=== PATIENT | female | born 1990 | race Caucasian/White ===

== ENCOUNTER 2018-08-10 08:44 | Emergency (ER) | payer SELFPAY ==
[2018-08-10 09:01] VITALS: BP 115/71
--- NOTE | 2018-08-10 09:17 | UC ---
Shoulder Pain HPI - HPI Summary HPI Summary: 27-year-old otherwise healthy female presents with 2 days of right sided scapula /chest pain. She reports mild shortness of breath and states that it gets worse with deep breath or cough. She has not been ill and states that this happened rather abruptly. She denies any recent travel or leg pain/swelling. She does have a sister that has history of pulmonary emboli. She is on her menses now and is not taking any oral contraceptives. She is a nonsmoker. - History of Current Complaint Chief Complaint: UCGeneralIllness Stated Complaint: R SIDE PAIN, SOB Time Seen by Provider: 08/10/18 09:07 Hx Obtained From: Patient Hx Last Menstrual Period: current Pain Intensity: 3 - Allergies/Home Medications Allergies/Adverse Reactions: Allergies Allergy/AdvReac Type Severity Reaction Status Date / Time Penicillins Allergy Hives Verified 08/10/18 09:02 Home Medications: Home Medications Ibuprofen 2 tab PO BID 08/10/18 [History Confirmed 08/10/18] PMH/Surg Hx/FS Hx/Imm Hx Previously Healthy: Yes - Surgical History Surgical History: None - Family History Known Family History: Positive: Other - Pulmonary emboli in sister - Social History Alcohol Use: Occasionally Substance Use Type: Marijuana Substance Use Comment - Amount & Last Used: daily Smoking Status (MU): Never Smoked Tobacco - Immunization History Most Recent Tetanus Shot: UTD Review of Systems All Other Systems Reviewed And Are Negative: Yes Constitutional: Positive: Negative ENT: Positive: Negative Respiratory: Positive: Shortness Of Breath, Cough - slight only Cardiovascular: Positive: Chest Pain Gastrointestinal: Positive: Negative Motor: Positive: Negative Neurovascular: Positive: Negative Musculoskeletal: Positive: Other: - R scapular pain Physical Exam Triage Information Reviewed: Yes Appearance: Well-Appearing, No Pain Distress, Well-Nourished, Other: - tall and quite thin, Marfanoid Vital Signs: Initial Vital Signs Temp 97.5 F 08/10/18 08:57 Pulse 68 08/10/18 08:57 Resp 16 08/10/18 08:57 BP 115/71 08/10/18 08:57 Pulse Ox 100 08/10/18 08:57 Eye Exam: Normal ENT: Positive: Normal ENT inspection, Hearing grossly normal Neck: Positive: Supple Respiratory: Positive: Chest non-tender, Lungs clear, No respiratory distress Cardiovascular: Positive: RRR Abdomen Description: Positive: Nontender Musculoskeletal Exam: Normal Neurological Exam: Normal Skin Exam: Normal Diagnostics - Radiology CXR Radiology Interpretation Completed By: Radiologist - NEG Shoulder Course/Dx - Course Course Of Treatment: Negative chest x-ray. Unable to fully rule out pulmonary emboli even though PERC is negative, [place] 0, [place] 0. SHe still reports some shortness of breath when walking from x-ray. Will send to ER for full R/O. - Differential Dx/Diagnosis Differential Diagnosis/HQI/PQRI: Other - PE, Pneumonia, Muscluar, Spont PTX Provider Diagnoses: Right sided Chest pain. Shortness of breath - Physician Notification/Consults Discussed Patient Care With: Cindy -- charge nurse - expect pt in the ED Discharge - Sign-Out/Discharge Documenting (check all that apply): Patient Departure All imaging exams completed and their final reports reviewed: Yes - Discharge Plan Condition: Stable Disposition: HOME-RECOMMEND TO ED Referrals: No Primary Care Phys,NOPCP [Primary Care Provider] - Additional Instructions: Go to the ER for evaluation of possible pulmonary emboli. - Billing Disposition and Condition Condition: STABLE Disposition: Home-Recommend to ED - Attestation Statements Document Initiated by Scribe: No
== END 2018-08-10 10:08 | disposition home health service (06) ==
LOC: UCEAST 08:44
DX: R07.89 Other chest pain (principal); R06.02 Shortness of breath; Z88.0 Allergy status to penicillin
CPT/HCPCS: 71046; 99202; G0463

== ENCOUNTER 2018-08-10 10:30 | Emergency (ER) | payer SELFPAY ==
[2018-08-10 11:52] LABS: ABS Basophils 0 10^3/ul (0-0.2); ABS Eosinophils 0.1 10^3/ul (0-0.6); ABS Lymphocytes 1.6 10^3/ul (1.0-4.8); ABS Monocytes 0.6 10^3/ul (0-0.8); ABS Neutrophils 4.6 10^3/ul (1.5-7.7); ABS Nucleated RBC 0 10^3/ul; Eosinophil % 1.2 % (0-6); Hematocrit 37 % (35-47); Hemoglobin 12.3 g/dl (12.0-16.0); Lymphocyte % 23.5 % (25-47); Mean Corpuscular HGB Conc 33 g/dl (31-36); Mean Corpuscular Hemoglobin 30 pg (27-31); Mean Corpuscular Volume 88 fL (80-97); Nucleated Red Blood Cells % 0; Platelet Count 173 10^3/ul (150-450); Red Blood Count 4.18 10^6/ul (4.00-5.40); Red Cell Distribution Width 13 % (10.5-15)
[2018-08-10 13:17] VITALS: BP 0/0
--- NOTE | 2018-08-10 13:18 | UC ---
Respiratory Complaint HPI - HPI Summary HPI Summary: 27-year-old otherwise healthy female presents with 2 days of right sided scapula /chest pain. She reports mild shortness of breath and states that it gets worse with deep breath or cough. She has not been ill and states that this happened rather abruptly. She denies any recent travel or leg pain/swelling. She does have a sister that has history of pulmonary emboli. She is on her menses now and is not taking any oral contraceptives. She is a no - History of Current Complaint Chief Complaint: EDChestWallPain Stated Complaint: CHEST PAIN, SOB Time Seen by Provider: 08/10/18 10:33 Hx Last Menstrual Period: current Pain Intensity: 2 Pain Scale Used: 0-10 Numeric - Allergies/Home Medications Allergies/Adverse Reactions: Allergies Allergy/AdvReac Type Severity Reaction Status Date / Time Penicillins Allergy Hives Verified 08/10/18 09:02 Home Medications: Home Medications Ibuprofen TAB* [Advil TAB*] 400 mg PO BID 08/10/18 [History Confirmed 08/10/18] PMH/Surg Hx/FS Hx/Imm Hx - Surgical History Surgical History: None - Family History Known Family History: Positive: Other - Pulmonary emboli in sister - Social History Alcohol Use: Occasionally Substance Use Type: Marijuana Substance Use Comment - Amount & Last Used: 08/08/18 Smoking Status (MU): Never Smoked Tobacco - Immunization History Most Recent Tetanus Shot: UTD Physical Exam Vital Signs: Initial Vital Signs Temp 96.7 F 08/10/18 10:32 Pulse 80 08/10/18 10:32 Resp 18 08/10/18 10:32 BP 112/67 08/10/18 10:32 Pulse Ox 100 08/10/18 10:32 UC Diagnostic Evaluation - Laboratory Result Diagrams: 08/10/18 11:20 08/10/18 11:20 O2 Sat by Pulse Oximetry: 0 Discharge - Discharge Plan Condition: Stable Disposition: HOME Forms: *Work Release Referrals: Matheus Kennedy MD [Medical Doctor] - No Primary Care Phys,NOPCP [Primary Care Provider] - Additional Instructions: Ibuprofen 600mg four times daily x 2 days Then, as needed If symptoms persist or worsen, return to the ED - Billing Disposition and Condition Condition: STABLE Disposition: Home
--- NOTE | 2018-08-10 13:39 | ED ---
Respiratory - HPI Summary HPI Summary: Patient is a 27-year-old female presenting with right scapular and chest pain times approximately 2 days. She endorses some shortness of breath, worse with taking deep breaths. She was sent here by a provider over at urgent care for a rule out PE, however her PERC score is negative as well as Wells criteria. She denies any recent travel, calf pain or swelling. Sister with a history of PE. Denies any history of known allergies. Denies any cough, congestion or production. Symptoms are worse with deep breaths, better with rest. - History of Current Complaint Chief Complaint: EDChestWallPain Stated Complaint: CHEST PAIN, SOB Time Seen by Provider: 08/10/18 10:33 Hx Obtained From: Patient Onset/Duration: Sudden Onset Timing: Constant Initial Severity: Moderate Current Severity: Moderate Pain Intensity: 2 Character: Cough (Nonproductive) Sputum Amount: None Sputum Color: Clear Aggravating Factor(s): Nothing Alleviating Factor(s): Nothing Associated Signs and Symptoms: Negative - Risk Factors Status Asthmaticus Risk Factors: Negative Pulmonary Embolism Risk Factors: Negative Cardiac Risk Factors: Negative Pseudomonas Risk Factors: Negative Tuberculosis Risk Factors: Negative - Allergy/Home Medications Allergies/Adverse Reactions: Allergies Allergy/AdvReac Type Severity Reaction Status Date / Time Penicillins Allergy Hives Verified 08/10/18 09:02 Home Medications: Home Medications Ibuprofen TAB* [Advil TAB*] 400 mg PO BID 08/10/18 [History Confirmed 08/10/18] PMH/Surg Hx/FS Hx/Imm Hx Previously Healthy: Yes Cardiovascular History: Denies: Other Cardiovascular Problems/Disorders Respiratory History: Denies: Other Respiratory Problems/Disorders - Immunization History Hx Pertussis Vaccination: No Immunizations Up to Date: Yes Infectious Disease History: No Infectious Disease History: Denies: Traveled Outside the [place] in Last 30 Days - Family History Known Family History: Positive: Other - Pulmonary emboli in sister - Social History Occupation: Unemployed Lives: With Family Alcohol Use: Occasionally Hx Substance Use: Yes Substance Use Type: Reports: Marijuana Substance Use Comment - Amount & Last Used: 08/08/18 Smoking Status (MU): Never Smoked Tobacco Review of Systems Negative: Fever, Chills, Fatigue, Skin Diaphoresis Positive: Chest Pain - right sided chest pain. Negative: Palpitations Positive: Shortness Of Breath. Negative: Cough Genitourinary: Negative Positive: no symptoms reported, see HPI Positive: Myalgia - right sided scapular pain Negative: Rash, Bruising Neurological: Negative Psychological: Normal All Other Systems Reviewed And Are Negative: Yes Physical Exam Triage Information Reviewed: Yes Vital Signs On Initial Exam: Initial Vitals Temp Pulse Resp BP Pulse Ox 96.7 F 80 18 112/67 100 08/10/18 10:32 08/10/18 10:32 08/10/18 10:32 08/10/18 10:32 08/10/18 10:32 Vital Signs Reviewed: Yes Appearance: Positive: Well-Appearing, Well-Nourished Skin: Positive: Warm, Skin Color Reflects Adequate Perfusion Head/Face: Positive: Normal Head/Face Inspection Eyes: Positive: EOMI, GOLDIE, Conjunctiva Clear Neck: Positive: Supple, No Lymphadenopathy Respiratory/Lung Sounds: Positive: Breath Sounds Present Cardiovascular: Positive: RRR Musculoskeletal: Positive: Strength/ROM Intact Neurological: Positive: Speech Normal Psychiatric: Positive: Affect/Mood Appropriate Diagnostics - Vital Signs Vital Signs Temp Pulse Resp BP Pulse Ox 08/10/18 13:16 0 F 0 18 0/0 0 08/10/18 12:12 53 14 111/61 100 08/10/18 12:00 55 22 100 08/10/18 11:42 60 20 108/70 98 08/10/18 11:12 67 17 104/72 100 08/10/18 11:00 57 17 100 08/10/18 10:42 67 21 121/72 99 08/10/18 10:32 96.7 F 80 18 112/67 100 - Laboratory Lab Results: Lab Results 08/10/18 08/10/18 08/10/18 Range/Units 11:20 11:20 11:20 WBC 7.0 (3.5-10.8) 10^3/ul RBC 4.18 (4.00-5.40) 10^6/ul Hgb 12.3 (12.0-16.0) g/dl Hct 37 (35-47) % MCV 88 (80-97) fL MCH 30 (27-31) pg MCHC 33 (31-36) g/dl RDW 13 (10.5-15) % Plt Count 173 (150-450) 10^3/ul MPV 9.0 (7.4-10.4) fL Neut % (Auto) 66.2 (38-83) % Lymph % (Auto) 23.5 L (25-47) % [place] % (Auto) 8.8 H (0-7) % Eos % (Auto) 1.2 (0-6) % Baso % (Auto) 0.3 (0-2) % Absolute Neuts (auto) 4.6 (1.5-7.7) 10^3/ul Absolute Lymphs (auto) 1.6 (1.0-4.8) 10^3/ul Absolute Monos (auto) 0.6 (0-0.8) 10^3/ul Absolute Eos (auto) 0.1 (0-0.6) 10^3/ul Absolute Basos (auto) 0 (0-0.2) 10^3/ul Absolute Nucleated RBC 0 10^3/ul Nucleated RBC % 0 D-Dimer, Quantitative < 200 (Less Than 230) ng/mL Sodium 139 (135-145) mmol/L Potassium 4.0 (3.5-5.0) mmol/L Chloride 107 (101-111) mmol/L Carbon Dioxide 27 (22-32) mmol/L Anion Gap 5 (2-11) mmol/L BUN 10 (6-24) mg/dL Creatinine 0.68 (0.51-0.95) mg/dL Est GFR ( Amer) 124.7 (>60) Est GFR (Non-Af Amer) 103.0 (>60) BUN/Creatinine Ratio 14.7 (8-20) Glucose 85 (70-100) mg/dL Calcium 9.7 (8.6-10.3) mg/dL Total Bilirubin 0.60 (0.2-1.0) mg/dL AST 13 (13-39) U/L ALT 9 (7-52) U/L Alkaline Phosphatase 54 (34-104) U/L Total Protein 7.2 (6.4-8.9) g/dL Albumin 4.3 (3.2-5.2) g/dL Globulin 2.9 (2-4) g/dL Albumin/Globulin Ratio 1.5 (1-3) Result Diagrams: 08/10/18 11:20 08/10/18 11:20 Lab Statement: Any lab studies that have been ordered have been reviewed, and results considered in the medical decision making process. Disposition - Course Course Of Treatment: During the course treatment, the patient's evaluated for right-sided scapular and chest pain. The chest pain is to the right side and nonreproducible. However, scapular pain is reproducible. D-dimer negative. Other labs obtained and are all WNL. Discussed with patient differentials. She 'll be started on ibuprofen 600mg 4 times daily 2 days. - Differential Dx - Cardiopulmonary Differential Diagnoses - Cardiopulmonary: Chest Wall Pain, Pericarditis - Diagnoses Provider Diagnoses: Atypical chest pain Discharge - Sign-Out/Discharge Documenting (check all that apply): Patient Departure - Discharge Plan Condition: Stable Disposition: HOME Forms: *Work Release Referrals: Matheus Kennedy MD [Medical Doctor] - No Primary Care Phys,NOPCP [Primary Care Provider] - Additional Instructions: Ibuprofen 600mg four times daily x 2 days Then, as needed If symptoms persist or worsen, return to the ED - Billing Disposition and Condition Condition: STABLE Disposition: Home
== END 2018-08-10 13:16 | disposition home or self-care (01) ==
LOC: ED 10:30
DX: R07.89 Other chest pain (principal); R06.02 Shortness of breath
CPT/HCPCS: 36415; 80053; 85025; 85379; 99282